=== PATIENT | female | born 1940 | race Caucasian/White ===

== ENCOUNTER 2018-05-15 14:29 | Inpatient (IN) | payer MEDICARE ==
[~2018-05-15] VITALS: Ht 162.6 cm; Wt 48.5 kg
[~2018-05-15 14:29] MED LIST: ACETAMINOPHEN500 MG PO; AGGRENOX 25 MG-21 EA PEG; AGGRENOX 25 MG-21 EA PO; AMLODIPINE BESY10 MG PO; ASPIRIN-DIPYRI1 EACH PO; BACLOFEN10 MG PO; C-10001000 MG PO; CARVEDILOL25 MG PO; CEPHALEXIN500 MG PO; CIPROFLOXACIN500 MG PO; CITRACAL SOFT1 EACH PO; CITRACAL-VIT D1 EACH PO; COREG25 MG PO; COZAAR100 MG PO; CRANBERRY200 MG PO; CRANBERRY250 MG PO; CRESTOR20 MG PO; DULCOLAX10 MG PR; ECHINACEA80 MG PO; FIBERCON1 TABLET PO; FOLGARD TABLET1 EAC1 PO; GABAPENTIN100 MG PO; GLIPIZIDE XL5 MG PO; GLUCOPHAGE850 MG PO; HYDROCHLOROTHIA25 MG PO; L-LYSINE500 M1 PO; LEVAQUIN750 MG PO; LISINOPRIL20 MG PO; LOSARTAN POTAS100 MG PO; LYSINE500 MG PO; METFORMIN HCL500 MG PO; METFORMIN HCL850 MG PO; NABUMETONE750 MG PO; NEURONTIN100 MG PO; NORCO 5-325 TA1 EACH PO; NORVASC10 MG PO; NORVASC5 MG PO; ONDANSETRON ODT4 MG SL; TOPROL XL50 MG PO; VITAMIN C WIT1000 MG PO; VITAMIN D1000 UNIT PO; VITAMIN D5000 UNIT PO; ZOFRAN4 MG PO
--- NOTE | 2018-05-15 22:09 | NUR ---
ADMITTED PT AT 2039. IS AWAKE AND WILL FOLLOW SOME DIRECTION IE TAKE A DEEP BREATH. IS DISORIENTED TO ALL BUT SELF. FAMILY ABLE TO ANSWER QUESTIONS. PT GIVEN MEDS WITH PUDDING AND ABLE TO TAKE SIP H20. ATTENDS CHANGED FOR STRONG SMELLING URINE. KEEPS HANDS CLENCHED. THIS IS REPORTED TO BE USUAL FOR PT. SKIN ON BUTTOCKS IS RED, BLANCHABLE AND PEELING IF HEALING FROM OLD EXCORIATION.
--- NOTE | 2018-05-16 01:52 | NUR ---
DR COHEN NOTIFIED OF LABE VALUES, WILL CONT NS AT CURRENT RATE AND RECHECK LABS IN AM.
--- NOTE | 2018-05-16 02:40 | NUR ---
SLEEPING SOUNDLY, RR DOWN TO 8. REPOSITIONED, ATTENDS CHANGED.
--- NOTE | 2018-05-16 04:29 | NUR ---
ASSESSMENT UNCHANGED, ATTENDS DRY.
--- NOTE | 2018-05-16 05:48 | NUR ---
INC SMALL AMT URINE. MOISTURE BARRIER CREAM APPLIED TO VALDEZ AREA WHICH IS RED.
--- NOTE | 2018-05-16 09:05 | NUR ---
ASSESSMENT COMPLETED AT THIS TIME. PT IS DROWSY, AND DISORIENTED X4 BUT CALM AND COOPERATIVE. SHE SAYS "NO" WHEN I ASK IF SHE IS IN ANY PAIN; AND SAYS "YES" WHEN ASKED IF SHE IS COMFORTABLE. PT HAS BEEN PLACED ON 2 L/MIN O2 VIA NC DUE TO PT'S DESAT INTO UPPER 80'S- AFTER O2 APPLIED IS NOW MAINTAINING IN THE 90'S. PER DR. COHEN'S VERBAL ORDER, I HAVE STOPPED HER CONTINUOUS NS AT 50 ML/HR AND SHE IS NOW SALINE LOCKED. LUNGS ARE COURSE IN THE LEFT LOBES BUT SANDRITA/DIM IN THE RIGHT LOBES. PT WAS TURNED TO THER RIGHT SIDE WITH PILLOW SUPPORT AT THIS TIME- ASSESSMENT OF HER COCCYX SHOWS THAT IT IS BRIGHT RED AND PINK BUT BLANCHABLE- VERY HIGH RISK OF BREAKDOWN SO Q2HR TURNS AND REPOSITIONING TO AND FROM LEFT/RIGHT SIDE WILL BE COMPLETED ON THIS SHIFT. I ALSO APPLIED BARRIER CREAM AND CHANGED HER BRIEF WHICH HAD LARGE AMOUNT OF INCONTINENT URINE IN IT. REST OF PT'S SKIN IS DRY, FLAKY AND FRAGILE. UNKNOWN DATE OF LAST BM AT THIS TIME BUT BOWEL TONES ARE NORMAL/ACTIVE. SB ON TELE. HEEL PROTECTORS IN PLACE. DENIES ANY NEEDS. CALL LIGHT WITHIN REACH AND FALL PRECAUTIONS IN PLACE. WILL CONTINUE TO MONITOR.
--- NOTE | 2018-05-16 09:40 | NUR ---
NEW 20 G PIV PLACED INTO RIGHT FA WITHOUT COMPLICATION AT THIS TIME. SCHEDULED ABX AND MAG ARE NOW BOTH RUNNING, ONE INTO EACH PIV (PT HAS EXISTING RUE PIV).
--- NOTE | 2018-05-16 10:15 | NUR ---
FULL BED BATH COMPLETED WITH 2 ASSIST- WELL SHAMPOO, TEETH BRUSHED, FULL LINEN CHANGE AND BRIEF CHANGED AFTER ANOTHER INCONTINENT EPISODE, LOTION APPLIED TO DRY SKIN OVER BODY AND MORE BARRIER CREAM APPLIED AFTER PERIANAL CARES. PT REPOSITIONED AT THIS TIME WITH PILLOW SUPPORT TO HER LEFT SIDE. HEEL PROTECTORS HAVE BEEN PLACED BACK ONTO PT AFTER BED BATH. PT HAS BEEN UNABLE TO EAT ANYTHING FOR BREAKFAST SHE REMAINS QUITE DROWSY, ALTHOUGH SHE WAS AWAKE ENOUGH TO SWALLOW HER PILLS IN PUDDING WITHOUT ISSUE. PT STATES THAT SHE IS COMFORTABLE AND HAS NO QUESTIONS, CONCERNS OR REQUESTS. CALL LIGHT WITHIN REACH. FALL PRECAUTIONS IN PLACE. WILL CONTINUE TO MONITOR.
--- NOTE | 2018-05-16 12:40 | NUR ---
PT'S DAUGHTER HAS ARRIVED AND IS NOW SITTING AT THE BEDSIDE. THIS RN HAS UPDATED HER ON PLAN OF CARE AND PT CONDITION. ASSESSMENT COMPLETED- NO CHANGE FROM AM ASSESSMENT- SEE CHARTING. DUE TO PT HAVING GOTTEN D5% ORDERED, HER BLOOD GLUCOSE WAS SLIGHTLY ELEVATED AT 231- SLIDING SCALE INSULIN GIVEN. PT REMAINS ON 2 L/MIN 02 VIA NC. BP'S ARE SOFT AND HR REMAINS IN HIGH 40'S/LOW 50'S- DR. COHEN CALLED AND NOTIFIED OF THIS; WELL NOTIFIED THAT DAUGHTER IS PRESENT TO COMPLETE UPDATED POLST FORM WHEN HE IS AVAILABLE. NO QUESTIONS OR CONCERNS. PT REPOSITIONED. CALL LIGHT WITHIN REACH. FALL PRECAUTIONS IN PLACE. WILL CONTINUE TO MONITOR.
--- NOTE | 2018-05-16 13:55 | NUR ---
PT REPOSITIONED TO RIGHT SIDE WITH PILLOW SUPPORT. PT CONTINUES TO MOAN AND STATES "THAT HURTS" WITH TURNS BUT WITHIN MINUTES AFTERWARDS SHE STATES SHE IS COMFORTABLE AND IN NO PAIN. WITH THIS REPOSITION, BRIEF WAS CHECKED AND HAD A SMALL AMOUNT OF INCONTINENT URINE- PT CLEANED, BARRIER CREAM REAPPLIED TO COCCYX AND NEW BRIEF IN PLACE. PT HAS FINISHED 100% OF MASHED POTATOS AND GRAVY WELL DRANK 100% OF A GLURCERNA- PT'S DAUGHTER ASSISTED HER WITH THIS FEEDING. PT SHOWS NO SIGNS OF ASPIRATION- NO COUGHING, MOUTH IS EMPTY, NO SOB. PT'S ABX HAS FINISHED INFUSING AND BOTH PIV IN RIGHT ARM ARE SALINE LOCKED. NO QUESTIONS OR CONCERNS BY PT OR DAUGHTER. CALL LIGHT WITHIN REACH. WILL CONTINUE TO MONITOR.
--- NOTE | 2018-05-16 14:20 | NUR ---
NOTIFIED DR. COHEN AT THIS TIME AFTER LAB CALLED 2 MINUTES AGO OF CRITICAL SODIUM LAB OF 111. DR. COHEN NOW AWARE- SAYS TO CONTINUE TO MONITOR PT; MAKE NO CHANGES TO PLAN AND REASSESS AFTER 1800 SODIUM LEVEL IS DRAWN.
--- NOTE | 2018-05-16 14:31 | NUR ---
CONSULT RECEIVED - UNSPECIFIED WHY. PATIENT HAS HISTORY OF DEMENTIA, TYPE 2 DM, MS, AND STROKE. SODIUM LEVEL ON ADMIT WAS 110. GLUCOSE WAS 137. LIVES WITH DAUGHTER AND SON. THEY HELP FEED HER. CURRENT DIET IS 1800 ADA WHICH IS APPROPRIATE. MAY NEED GLUCERNA FOR ORAL SUPPLEMENT FOR ADDITIONAL CALORIES. SHE HAD A GLUCERNA FOR LUNCH TODAY. NO NUTRITION INTERVENTION AT THIS TIME. WILL CONTINUE TO MONITOR.
--- NOTE | 2018-05-16 15:50 | NUR ---
PT REPOSITIONED TO LEFT SIDE WITH PILLOWS AND 2 ASSIST; INCONTINENT URINE SO PT CLEANED, BARRIER CREAM REAPPLIED TO BOTTOM AND NEW BRIEF IN PLACE. ASSESSMENT COMPLETED AT THIS TIME. PT STATES SHE IS COMFORTABLE WITH NO PAIN. PT'S DAUGHTER REMAINS AT THE BEDSIDE, NO QUESTIONS OR CONCERNS. CALL LIGHT WITHIN REACH. FALL PRECAUTIONS IN PLACE. WILL CONTINUE TO MONITOR.
--- NOTE | 2018-05-16 17:15 | NUR ---
PT REMAINS COMFORTABLE ON HER LEFT SIDE AT THIS TIME; DINNER HAS BEEN ORDERED AND PT HAS NO QUESTIONS OR CONCERNS. DAUGHTER AT BEDSIDE WITH NO QUESTIONS. CALL LIGHT WITHIN REACH. WILL CONTINUE TO MONITOR.
--- NOTE | 2018-05-16 18:45 | NUR ---
REPOSITIONED TO RIGHT SIDE AT THIS TIME. INCONT EPISODE- BARRIER CREAM REAPPLIED AND BRIEF CHANGED. DAUGHTER REMAINS AT THE BEDSIDE WITH NO QUESTIONS. POLST FORM STILL NEEDS UPDATING. PT STATES SHE IS COMFORTABLE AND HAS NO QUESTIONS OR CONCERNS. CALL LIGHT WITHIN REACH. HEEL PROTECTORS ON. WILL CONTINUE TO MONITOR.
--- NOTE | 2018-05-16 19:13 | NUR ---
NOTIFIED DR. COHEN OF CRITICAL SODIUM VALUE OF 110. HE'S AWARE AND WILL BE PLACING FLUID ORDERS.
--- NOTE | 2018-05-16 21:24 | NUR ---
PT INCONTENT OF URINE ATTENDS CHANGED AND TURNED TO LEFT SIDE.
--- NOTE | 2018-05-16 21:26 | NUR ---
BED IN LOW POSITION, CALL LIGHT WITHIN REACH SIDE RAILS X 4
--- NOTE | 2018-05-16 22:32 | NUR ---
PT APPEARS TO BE SLEEPING AT THIS TIME, RESP RATE EVEN AND UNLABORED AT THIS TIME.
--- NOTE | 2018-05-16 23:22 | NUR ---
PT ASLEEP AT THIS TIME, SPO2 100% WITH 2L VIA NC INPLACE.
--- NOTE | 2018-05-17 00:10 | NUR ---
LAB SAMPLE OBTAINED VIA IV SITE RIGHT FORARM. WASTED 3 ML AND SENT 3 MLS. PT ATTENDED CHANGED AND THEN TURNED TO HER RIGHT SIDE. CALL LIGHT WITHIN REACH, SIDE RAILS X4, AND BED IN LOW POSITION.
--- NOTE | 2018-05-17 00:52 | NUR ---
3% NS TURNED OFF, WAITING ON LAB RESULTS AT THIS TIME.
--- NOTE | 2018-05-17 01:29 | NUR ---
DR COHEN NOTIFIED OF LAB RESULTS OF THE BNP, NEW ORDERS SALINE LOCK IV SITE AND HAVE LAB IN THE AM.
--- NOTE | 2018-05-17 02:27 | NUR ---
CARE ASSUMED, REPORT RECEIVED FROM DENISSE SORIA. PT RESTING WITH EYES CLOSED, RESP EVEN UNLABORED.
--- NOTE | 2018-05-17 03:45 | NUR ---
IN TO REPOSITION AND ASSESS PT. PT AWAKENS EASILY, STATES SHE DID VOID BUT ATTENDS WERE DRY. ALLEVYN APPLIED TO COCCYX IT IS REDDENED BUT BLANCHES. PT REPOSITIONED. PAIN WITH REPOSITIONING BUT AFTER ACTIVITY PT STATES SHE IS NOT IN PAIN.
--- NOTE | 2018-05-17 06:00 | NUR ---
PT REPOSITIONED, DENIES NEEDS, ATTENDS DRY.
--- NOTE | 2018-05-17 07:24 | NUR ---
PT INC LARGE AMOUNT OF URINE, ATTENDS CHANGED AND VALDEZ CARE DONE AND PT REPOSITIONED.
--- NOTE | 2018-05-17 07:39 | NUR ---
NOTIFIED DR. COHEN OF SODIUM LEVEL OF 112. NO NEW ORDERS AT THIS TIME OTHER THAN TO MAINTAIN FLUID RESTRICTION.
--- NOTE | 2018-05-17 08:45 | NUR ---
ASSESSMENT COMPLETED AT THIS TIME. PT IS RESTING IN BED ON HER RIGHT SIDE WITH PILLOW SUPPORT. PT IS HAVING NO PAIN AND STATES SHE IS COMFORTABLE. PT IS DISORIENTED AND CONFUSED AT BASELINE BUT IS AWAKE, ALERT, PLEASANT, CALM AND COOPERATIVE. CONGESTED LUNG SOUNDS. I WEANED PT DOWN TO 1 L/MIN O2 VIA NC. PT HAS A WEAK, CONGESTED, NONPRODUCTIVE COUGH. NEEDS ENCOURAGEMENT TO COUGH AND DEEP BREATHE. BOTH PIV IN RIGHT ARM ARE WNL. PT WELL UNDER HER 1200 ML FLUID RESTRICTION. REQUIRES FULL ASSISTANCE WITH PILLS IN PUDDING WELL FEEDING- WILL ORDER PT BREAKFAST SOON. PT INCONTINENT AND REQUIRES Q2HR TURNS AND REPOSITIONING WITH PILLOW SUPPORT. ALLEYVN ON COCCYX FOR BREAKDOWN PREVENTION AND BARRIER CREAM APPLIED AT THIS TIME. LABIA EXORIATION HAS IMPROVED COMPARED TO YESTERDAY. PT HAS NO QUESTIONS OR CONCERNS. CALL LIGHT WITHIN REACH. FALL PRECAUTIONS IN PLACE. WILL CONTINUE TO MONITOR.
--- NOTE | 2018-05-17 09:50 | NUR ---
DR. COHEN AT THE BEDSIDE; PER DR. COHEN, STOP 3% SALINE AT NOON PRIOR TO LAB DRAW.
--- NOTE | 2018-05-17 10:00 | NUR ---
FULL BED BATH COMPLETED WITH LINEN CHANGE, VALDEZ CARE, ORAL CARE, REPOSITIONED TO LEFT SIDE WITH PILLOWS, INCONTINENT EPISODE- BRIEF CHANGED. PT STATES SHE IS COMFORTABLE WITH NO QUESTIONS OR CONCERNS. CALL LIGHT WITHIN REACH. FALL PRECAUTIONS IN PLACE. WILL CONTINUE TO MONITOR.
--- NOTE | 2018-05-17 12:05 | NUR ---
3% SALINE HAS BEEN STOPPED AT THIS TIME AND PT IS SALINE LOCKED- AWAITING SODIUM LAB RESULT FOR FURTHER PLAN OF CARE. DAUGHTER HAS JUST ARRIVED AT BEDSIDE. PT REPOSITIONED BACK TO HER RIGHT SIDE WITH PILLOWS. BRIEF CHECKED AND IT WAS DRY. SKIN ON BOTTOM IS MUCH LESS RED THAN IT WAS YESTERDAY- WILL CONTINUE THE TURNING SCHEDULE. ASSESSMENT COMPLETED AGAIN AT THIS TIME. LUNGS SOUNDS MORE CLEAR THAN THIS MORNING, ALTHOUGH STILL SOMEWHAT COURSE. SOME EDUCATION COMPLETED WITH DAUGHTER AT THIS TIME IN REGARDS TO LEFT/RIGHT TURNING SCHEDULE WHEN PT IS HOME. NO QUESTIONS OR CONCERNS AT THIS TIME. CALL LIGHT WITHIN REACH. PT ATE BREAKFAST LATE INTO THE MIDMORNING SO SHE STATES SHE ISN'T QUITE HUNGRY FOR LUNCH YET. CALL LIGHT WITHIN REACH. WILL CONTINUE TO MONITOR.
--- NOTE | 2018-05-17 13:49 | NUR ---
DR. OCHEN NOTIFIED AT THIS TIME OF SODIUM 116. KEEP SALINE LOCKED AND MAKE SURE PT DRINKS 150 ML OF WATER BY 1800. CONTINUE TO MONITOR AND AWAIT 1800 SODIUM LAB DRAW RESULT.
--- NOTE | 2018-05-17 14:40 | NUR ---
PT REPOSITIONED TO HER LEFT SIDE WITH PILLOW SUPPORT. BRIEF WITH LARGE INCONTINENT EPISODE; PT CLEANED, BARRIER CREAM REAPPLIED, NEW BRIEF PLACED. PT'S LUNCH HAS ARRIVED; DAUGHTER AND SON AT BEDSIDE. CALL LIGHT WITHIN REACH. WILL CONTINUE TO MONITOR.
--- NOTE | 2018-05-17 14:52 | NUR ---
DR. COHEN AT BEDSIDE AT THIS TIME TO COMPLETE POLST FORM WITH PT'S FAMILY.
--- NOTE | 2018-05-17 15:30 | NUR ---
PT HAS FINISHED LUNCH OF MASHED POTATOES AND PEAS BUT ONLY TOOK A FEW BITES, STATING SHE WASN'T HUNGRY. PT RESTING WITH DAUGHTER AT HER SIDE. NO QUESTIONS OR CONCERNS. CALL LIGHT WITHIN REACH. WILL CONTINUE TO MONITOR.
[2018-05-17] MEDS ORDERED: ZESTRIL20 MG PO (15:34)
--- NOTE | 2018-05-17 16:00 | NUR ---
ASSESSMENT COMPLETED AT THIS TIME. PT'S DAUGHTER REQUESTED SHE STAY ON HER LEFT SIDE SHE'S RESTING WITH HER EYES CLOSED. WILL REPOSITION SOON. LUNGS STILL COURSE AND WET CONGESTED STILL PRESENT- NEEDS ENCOURAGEMENT TO COUGH AND DEEP BREATHE. 1 L NC. PT REMAINS SALINE LOCKED. POLST FORM HAS BEEN COMPLETED AND PT NOW DNR. CALL LIGHT WITHIN REACH. WILL CONTINUE TO MONITOR.
--- NOTE | 2018-05-17 18:00 | NUR ---
PT REPOSITIONED TO RIGHT SIDE WITH PILLOW SUPPORT. INCONTINENT EPISODE; BRIEF CHANGED AND BARRIER CREAM REAPPLIED- REDNESS ON COCCYX, BUTTOCK AND LABIA MUCH IMPROVED OVER LAST 2 DAYS WITH KEEPING PT ON LEFT/RIGHT OPPOSED TO SUPINE. ALLEYVN REMAINS IN PLACE FOR SKIN BREAKDOWN PREVENTION. CALL LIGHT WITHIN REACH. WILL CONTINUE TO MONITOR.
--- NOTE | 2018-05-17 18:45 | NUR ---
PT REQUESTED A LATE DINNER- IT HAS JUST ARRIVED AND DAUGHTER SUAD IS ASSISTING PT WITH HER MEAL. CALL LIGHT WITHIN REACH. WILL CONTINUE TO MONITOR.
--- NOTE | 2018-05-17 19:45 | NUR ---
DR COHEN CALLED IN TO ORDER 3%NS AT 5ML/HR AFTER REVIEWING RECENT LAB RESULTS. IVF STARTED. PT AWAKE IN BED, HAD JUST FINISHED UP EATING DINNER WITH DAUGHTER, ATE ONLY A FEW BITES OF SOUP AND BANANA. SIPS OF WATER GIVEN. PT APPEARS COMFORTABLE, WAS RECENTLY TURNED BY DAY SHIFT AND IS SLEEPY, BACK TO SLEEP QUICKLY AFTER ASSESSMENT COMPLETED. ATTENDS DRY AT THIS TIME.
--- NOTE | 2018-05-17 22:20 | NUR ---
IN TO TRY TO WAKE PT FOR HS MEDS AND BLOOD SUGAR, PT AWAKENS TAKES PILLS WITH LOTS OF VERBAL STIMULI BUT WANTS TO FALL BACK TO SLEEP. REPOSITIONED AND ATTENDS DRY.
--- NOTE | 2018-05-18 01:34 | NUR ---
0125 CRITICAL LAB VALUE RECEIVED, SODIUM 116. DR COHEN NOTIFIED VIA TELEPHONE AND ORDER RECEIVED TO INCREASE 3% SODIUM IV INFUSION TO 12ML/HR.
--- NOTE | 2018-05-18 01:36 | NUR ---
DR COHEN CALLS BACK AND UPDATES ORDER TO 15ML/HR OF 3% SODIUM IV INFUSION.
--- NOTE | 2018-05-18 02:30 | NUR ---
ATTENDS DRY, PT REPOSITIONED, DENIES NEEDS AND BACK TO SLEEP.
--- NOTE | 2018-05-18 05:00 | NUR ---
REPOSITIONED, ASSESSMENT DONE AND PT BACK TO SLEEP.
--- NOTE | 2018-05-18 07:51 | NUR ---
CALL TO DR COHEN TO UPDATE RE [facility], ORDER TO TURN 3%NS INFUSION TO 10ML/HR.
--- NOTE | 2018-05-18 08:17 | NUR ---
IV SITES INTACT, NO REDNESS OR SWELLING NOTED, FLUIDS AND FLUSHES INFUSE EASILY. PT REMAINS CONFUSED AND VERY DROWSY. VITALS WNL.
--- NOTE | 2018-05-18 12:44 | NUR ---
PT REPOSITIONED IN BED WITH HELP OF DAUGHTER. PT NOT ABLE TO COMMUNICATE AT THIS TIME. PT WOULD SWALLOW ONE SIP OF GLUCERNA, REFUSED MORE. PT IS DROWSY. DISCUSSED CURRENT CARE PLAN WITH DAUGHTER. DAUGHTER IS TEARFUL ON OCCASION. PT ALSO NOT ABLE TO FOLLOW DIRECTIONS.
--- NOTE | 2018-05-18 13:21 | NUR ---
FAMILY IN WITH PT AND ESTELLA MARTINEZ. THEY APPEAR TO BE IN DISCUSSION, WILL NOT DISTURB. I WILL CHECK BACK LATER
--- NOTE | 2018-05-18 13:46 | NUR ---
CALLED MD COHEN TO UPDATE REGUARDING PT LABS. PER MD START 3% NORMAL SALINE AT 10MLS/HR. UPDATED THAT PATIENT HAS BEEN UNABLE TO SWALLOW POTASSIUM SUPPLEMENTS. PER MD NO IV REPLACEMENT AT THIS TIME. CONTINUE TO ENCOURAGE PO REPLACEMENT ORDERED. WILL UPDATE MICHELLE SORIA OF RESULTS AND ORDERES.
[2018-05-18] MEDS ORDERED: CIPRO500 MG PO (13:52)
--- NOTE | 2018-05-18 13:52 | NUR ---
MED REC COMPLETE
--- NOTE | 2018-05-18 14:00 | NUR ---
in to remove pts dentures and do oral care. pts family reports that pt has been complaining of a sore throat. sore noted to the roof of mouth, small red, round. primary nurse notified.
--- NOTE | 2018-05-18 14:15 | NUR ---
ORAL CARES DONE. MOIST SWABS USED TO CLEAN GUMS AND TOUNG. SMALL FLEXIBLE SUCTION ORAL SUCTION CATH USED. PT DAMASO WELL.
--- NOTE | 2018-05-18 14:54 | NUR ---
PT ATTENDS CHANGED SHE IS INCONTINENT OF LARGE AMOUNT OF URINE. PT REPOSITIONED FOR COMFORT TO LEFT SIDE WITH PILLOW FOR SUPPORT. VALDEZ AREA REMAINS RED BUT BLANCHABLE. VALDEZ CARE DONE.
--- NOTE | 2018-05-18 15:29 | NUR ---
PT ABLE TO SWALLOW ONE PILL WITH DIFFICULTY. PT REFUSING TO DRINK FLUIDS AT THIS TIME. PT GIVEN A SUPPOSITORY FOR CONSTIPATION.
--- NOTE | 2018-05-18 16:32 | NUR ---
PT REPOSITIONED IN BED TO RT SIDE WITH PILLOWS FOR SUPPORT. PT ATTENDS STILL DRY AT THIS TIME. IV SITES INTACT, NO REDNESS OR SWELLING NOTED, FLUIDS AND FLUSHES INFUSE EASILY. PT NOT WAKING AND INTERACTING APPROPIATLY.
--- NOTE | 2018-05-18 17:22 | NUR ---
3% SODIUM CHLORIDE DRIP OFF AT THIS TIME PER .
--- NOTE | 2018-05-18 18:37 | NUR ---
PT STRAIGHT CATHED FOR URINE SAMPLE. VALDEZ CARE DONE. ATTENDS CHANGED, PT REPOSITIONED WITH SUPPORT OF PILLOWS, WARM BLANKET PROVIDED. URINE SAMPLE SENT TO LAB.
--- NOTE | 2018-05-18 20:00 | NUR ---
REPORT RECEIVED, PT RESTING IN BED, EYES CLOSED, EASY TO AROUSE BUT REMAINS DROWSY, PT'S FAMILY AT BEDSIDE. NO REQUESTS AT THIS TIME. DISCUSSED WITH DR. COHEN REGARDING PT'S SODIUM LEVELS AND MEDICATION, DR. COHEN ENTERED SEVERAL NEW ORDERS, SEE EMAR. QUESTIONS ANSWERED, MD AWARE OF PT'S CURRENT CONDITION INCLUDING DROWSINESS, DECREASED PO INTAKE, INABILITY FOR PT TO TAKE PO MEDS, PT WAS ONLY ABLE TO TAKE ON PILL BEFORE BECOMING TIRED AND UNABLE TO FOLLOW DIRECTIONS.
--- NOTE | 2018-05-18 21:00 | NUR ---
IV FLUIDS INFUSING PER EMAR WNL, PT'S FAMILY LEFT THE UNIT , WISHES FOR HER TO BE CALLED IF ANY CHANGES OCCUR. SHIFT ASSESSMENT COMPLETE. PT RESTING IN BED, EYES CLOSED. NO REQUESTS AT THIS TIME. REPOSITIONED IN BED FOR COMFORT. WILL CONTINUE TO MONITOR, VSS.
--- NOTE | 2018-05-18 22:13 | NUR ---
PT RESTING IN BED, EYES CLOSED, BREATHS EVEN, UNLABORED, NO REQUESTS AT THIS TIME, CALL LIGHT WITHIN REACH. ON RA, VSS, FALL PRECAUTIONS IN PLACE. PT REPOSITIONED FOR COMFORT. IV FLUIDS INFUSING PER EMAR WNL.
--- NOTE | 2018-05-19 | NUR ---
ASSESSMENT COMPLETE, PT RESTING IN BED, RESPONSIVE TO VERBAL STIMULI, ABLE TO COMMUNICATE SHORT PHRASES, PT ON RA, NO C/O SOB/CP, NO C/O PAIN, PT INCONTINENT OF LARGE URINE VOID AND SMALL BM, ATTENDS CHANGED, NEW BEDDING APPLIED, NEW ALLEVYN APPLIED TO PT'S BACK SIDE, MODERATE REDNESS NOTED, SKIN BLANCHABLE, ONE SMALL OPEN SCABBED AREA NOTED ON RIGHT GLUTEUS, APPEARS OLD, NO SIGNS OF DRAINAGE, PT ANXIOUS RELATED TO TURNING IN BED, PT TURNED FOR COMFORT, PILLOW PLACED ON LEFT SIDE FOR SUPPORT, PT AFEBRILE, VSS, IV FLUIDS INFUSING PER EMAR WNL. NO REQUESTS AT THIS TIME, CALL LIGHT WITHIN REACH, FALL PRECAUTIONS IN PLACE.
--- NOTE | 2018-05-19 01:00 | NUR ---
PT RESTING IN BED, EYES CLOSED, BREATHS EVEN, UNLABORED, ON RA, NO C/O SOB/CP, NO C/O PAIN. PT'S IV FLUIDS INFUSING PER EMAR WNL. NO REQUESTS AT THIS TIME, CALL LIGHT WITHIN REACH, FALL PRECAUTIONS IN PLACE.
--- NOTE | 2018-05-19 02:52 | NUR ---
PT RESTING IN BED, EYES CLOSED, BREATHS EVEN, UNLABORED, ON RA, NO REQUESTS AT THIS TIME, VSS, CALL LIGHT WITHIN REACH. FALL PRECAUTIONS IN PLACE.
--- NOTE | 2018-05-19 03:22 | NUR ---
DR. COHEN CALLED, NOTIFIED OF PT'S RECENT LAB VALUES, SODIUM LEVEL CAME BACK AT 125, DR COHEN AWARE, DISCUSSED PT'S INTAKE AND OUTPUT WELL, NEW ORDER TO HOLD IV FLUIDS UNTIL AFTER FOLLOWING LAB RESULTS.
--- NOTE | 2018-05-19 04:00 | NUR ---
PT RESTING IN BED, AOX4, APPROPRIATE, PT ON 3LNC, TOLERATING WELL, O2 SAT 97%, NO C/O SOB/CP, DALY CATH DRAINING WNL, URINE OUTPUT QS, VSS, IV FLUIDS INFUSING PER EMAR WNL. ASSESSMENT COMPLETE. NO REQUESTS AT THIS TIME, CALL LIGHT WITHIN REACH. FALL PRECAUTIONS IN PLACE.
--- NOTE | 2018-05-19 04:19 | NUR ---
PT RESTING IN BED, BREATHS EVEN, UNLABORED, ON RA, NO C/O SOB/CP, NO REQUESTS AT THIS TIME, ASSESSMENT DONE, PT ALERT, REMAINS DROWSY, BUT MORE RESPONSIVE THAN PREVIOUS, PT REMAINS CONFUSED, DISORIENTED, BUT WILL RESPOND TO VERBAL STIMULI AND COMMUNICATE SHORT RESPONSES. PT INCONTINENT OF URINE, ATTENDS CHANGED, PT TURNED FOR COMFOT, VSS, CALL LIGHT WITHIN REACH, FALL PRECAUTIONS IN PLACE. IV SL.
--- NOTE | 2018-05-19 06:07 | NUR ---
IN ROOM TO ADMIN SCHED ABX, PT RESTING IN BED, EYES CLOSED, BREATHS EVEN, UNLABORED, ON RA, IV SL NOW, PT RESPONDING TO VERBAL STIMULI, REMAINS DROWSY, DISORIENTED, PT REPOSITIONED IN BED FOR COMFORT, ON RA, VSS, NO REQUESTS AT THIS TIME, CALL LIGHT WITHIN REACH.
--- NOTE | 2018-05-19 08:20 | NUR ---
IV SITES INTACT, NO REDNESS OR SWELLING NOTED, BOTH SITES FLUSH EASILY.
--- NOTE | 2018-05-19 08:56 | NUR ---
PT LEFT WITH RN AND IMAGING STAFF TO HAVE CT.
--- NOTE | 2018-05-19 09:10 | NUR ---
PT BACK TO ROOM 130 FROM IMAGING, PT DAMASO WELL.
--- NOTE | 2018-05-19 09:25 | NUR ---
D5 1/2 NS AT 45 ML/HR STARTED PER DR.REDDY VALENTINE.
--- NOTE | 2018-05-19 12:17 | NUR ---
CARE CONFERENCE DR COHEN DISCUSSED PLAN OF CARE WITH FAMILY TO INCLUDE THAT DR KESSLER WILL BE HERE THIS EVENING TO SEE PT ABOUT THE STONE THAT IS BLOCKING. FAMILY IS FEELING RELIEVED THAT AT THIS POINT IN TIME SHE WILL NOT HAVE TO BE TRANSFERRED TO ANOTHER FACILITY PRESENT WERE: SON SILVIA, DAUGHTER SUAD, DR COHEN, MYSELF CASE MANAGEMENT, AND JOJO SORIA.
--- NOTE | 2018-05-19 17:50 | NUR ---
3% SODIUM CHLORIDE TURNED OFF AT THIS TIME PER ORDER. WAITING PENDING LAB FOR MOST RECENT SODIUM LEVEL.
--- NOTE | 2018-05-19 18:27 | NUR ---
DAUGHTER IS AT THE BEDSIDE. PT VITALS REMAIN STABLE. KAILEE ORTIZ HAS DISCUSSED WITH FAMILY IN DEPTH RISKS INVOLVED WITH ANASTHESIA FOR THIS PT, ALL QUESTIONS ANSWERED. FAMILY DOES NOT WISH TO REVOKE DNR/DNI FOR THE PROCEDURE.
--- NOTE | 2018-05-19 18:31 | NUR ---
PT HAD A DALY URINARY CATH PLACED THIS MORNING, GREATER THAN QS URINE PRODUCTION ALL DAY. BEDBATH GIVEN, ORAL CARE DONE X4 DURING THIS SHIFT, PT REPOSITIONED Q2 HOURS WITH SUPPORT OF PILLOWS. PT WENT TO CT THIS AM FOR ABD CT WITH IV CONTRAST. PT LOC HAS REMAINED LOW. PT FAMILY HAS BEEN AT THE BEDSIDE MOST OF THE DAY. AND REDD ORTIZ CRNA HAVE DISCUSSED IN DETAIL WITH FAMILY SURGERY FOR THIS PT TODAY. IS YET TO SEE PT, AWAITING HER FOR SURGICAL CONSULT. PT HAS AN ADDITIONAL IV STARTED THIS AFTERNOON. VITALS HAVE BEEN WNL ALL SHIFT.
--- NOTE | 2018-05-19 18:50 | NUR ---
CALLED REDD ORTIZ CRNA TO NOTIFY OF POSITIVE TOROPONIN LEVEL OF 0.085. NO FURTHER ORDERS AT THIS TIME.
--- NOTE | 2018-05-19 19:54 | NUR ---
PT RESTING IN BED, AWAKE, RESPONSIVE, COMMUNICATING SHORT PHRASES WITH STAFF, PT REPOSITIONED IN BED FOR COMOFORT, IV FLUIDS INFUSING PER EMAR WNL, PT'S VSS, NO REQUESTS AT THIS TIME, CALL LIGHT WITHIN REACH, FALL PRECAUTIONS IN PLACE.
--- NOTE | 2018-05-19 20:33 | NUR ---
DR. KESSLER IN ROOM DISCUSSING RISK AND BENEFITS OF SURGERY, PT RESTING IN BED, FAMILY AT BEDSIDE, NO REQUESTS AT THIS TIME, CALL LIGHT WITHIN REACH, IV FLUIDS INFUSING PER EMAR WNL.
--- NOTE | 2018-05-19 20:45 | NUR ---
DR. BORDEN CALLED, DISCUSSED DR. KESSLER SPEAKING WITH FAMILY, ALSO DISCUSSED PT'S RECENT SODIUM LEVEL OF 124, DR. BORDEN ORDERED FOR 3% NS INFUSION TO BE RESTARTED AT 10ML/HR UNTIL PT'S NEXT LAB DRAW IN THE MORNING, UNLESS THE PT IS TO BE GOING TO SURGERY. DR. KESSLER REMAINS IN ROOM WITH FAMILY DISCUSSING SURGERY OPTIONS, PT RESTING IN BED, IV FLUIDS INFUSING PER EMAR WNL, NO REQUESTS AT THIS TIME, VSS, CALL LIGHT WITHIN REACH. FAMILY/MD AT BEDSIDE.
--- NOTE | 2018-05-19 21:45 | NUR ---
DR. KESSLER AND DR. BORDEN TO UNIT, BOTH PHYSICIANS DISCUSSED POC REGARDING PT AND SURGERY, DR. KESSLER AND FAMILY DECIDED TO NOT HAVE SURGERY TONIGHT, DR. KESSLER SPENT AN HOUR IN THE ROOM SPEAKING WITH THE FAMILY REGARDING ALL OPTIONS INCLUDING SURGERY WELL TRANSITIONING TO END OF LIFE PALLIATIVE CARE. DISCUSSED WITH DR. BORDEN THE PT'S INABILITY TO TOLERATE PO INTAKE WELL THE PT'S BP. NEW ORDER FOR IV BLOOD PRESSURE MED SEE EMAR. PT RESTING IN BED, FAMILY AT BEDSIDE, IV FLUIDS INFUSING PER EMAR WNL, DALY CATH DRAINING WNL. PT ON 1LNC, O2 SAT > 95%, NO REQUESTS AT THIS TIME, CALL LIGHT WITHIN REACH.
--- NOTE | 2018-05-19 22:00 | NUR ---
PT RESTING IN BED, PT REPOSITIONED IN BED, EVENING MEDS ADMINISTERED, SHIFT ASSESSMENT COMPLETE, PT MOUTH SUCTIONED FOR COMFORT, WHITE THICK SPUTUM SUCTIONED FROM PT'S MOUTH, ORAL CARE PROVIDED FOR COMFORT, PT REPOSITIONED FOR COMFORT, NEW ATTENDS PLACED, SMALL SMEAR OF STOOL NOTED, BARRIER CREAM APPLIED TO PT'S BACKSIDE, BACKSIDE APPEARS RED, BLANCHES, ALLEVYN NOTED ON COCCYX, REMAINS INTACT, NO PAIN OR DISCOMFORT NOTED RELATED TO PT'S BACKSIDE. PT WAS GIVEN PRN ACETAMINOPHIN SUPP. PER PT'S FAMILY REQUEST RELATED TO SYMPTOMS OF DISCOMFORT, PT NOTED TO OCASSIONALLY GRIMACE, MOAN IN PAIN WHEN MOVING, PT'S FAMILY NOTED THE PT "CLENCHES HER FISTS WHEN IN PAIN" PT TOLERATED SUPPOSITORY WELL. PRN BP MED GIVEN PER EMAR WELL. ON 1LNC, NO C/O SOB/CP, O2 SAT >95%, IV FLUIDS INFUSING PER EMAR, 3% NS INFUSING AT 10 ML/HR PER ORDER, FAMILY REMAINS AT BEDSIDE, FALL PRECAUTIONS IN PLACE, CALL LIGHT WITHIN REACH.
--- NOTE | 2018-05-19 23:43 | NUR ---
PT RESTING IN BED, EYES CLOSED, BREATHS EVEN, UNLABORED, NO REQUESTS AT THIS TIME. VSS, ON 1LNC, O2 SAT 94% RR 14, FAMILY REMAINS AT BEDSIDE, IV FLUIDS INFUSING PER EMAR WNL, CALL LIGHT WITHIN REACH, FALL PRECAUTIONS IN PLACE.
--- NOTE | 2018-05-20 00:34 | NUR ---
PT RESTING IN BED, EYES CLOSED, BREATHS EVEN, UNLABORED, ON 1LNC, NO C/O SOB/CP, O2 SAT 97%, RR 13, IV FLUIDS INFUSING PER EMAR WNL, DALY CATH DRAINING WNL, FAMILY REMAINS AT BEDSIDE, CALL LIGHT WITHIN REACH, FALL PRECAUTIONS IN PLACE.
--- NOTE | 2018-05-20 01:30 | NUR ---
PT RESTING IN BED, EYES CLOSED, BREATHS EVEN, UNLABORED, NO REQUESTS AT THIS TIME, NO SIGNS OF DISCOMFORT OR AGITATION. PT ON 1LNC, O2 SAT 98%, IV FLUIDS INFUSING PER EMAR WNL, DALY CATH DRAINING WNL. CALL LIGHT WITHIN REACH. FAMILY REMAINS AT BEDSIDE, FALL PRECAUTIONS IN PLACE.
--- NOTE | 2018-05-20 02:40 | NUR ---
PT TURNED FOR COMFORT, PT AWAKES WITH TURNING, QUICKLY ABLE TO CONSOLE, PT QUICK TO FALL BACK ASLEEP, PT ON 1LNC, NO C/O SOB/CP, O2 SAT 100%, RR 14, IV FLUIDS INFUSING PER EMAR WNL, NO REQUESTS AT THIS TIME, FAMILY REMAINS AT BEDSIDE. DALY CATH DRAINING WNL. URINE OUTPUT QS. CALL LIGHT WITHIN REACH, FALL PRECAUTIONS IN PLACE.
--- NOTE | 2018-05-20 03:21 | NUR ---
PT RESTING IN BED, EYES CLOSED, BREATHS EVEN, ON 1LNC, O2 SAT 98% RR 14, VSS, AFEBRILE, NO REQUESTS AT THIS TIME, NO SIGNS OF DISCOMFORT OR AGITATION, IV FLUIDS INFUSING PER EMAR, 3% NS INFUSING AT 10 ML/HR PER ORDER PER DR. BORDEN, DALY CATH DRAINING WNL, FAMILY REMAINS AT BEDSIDE, CALL LIGHT WITHIN REACH, FALL PRECAUTIONS IN PLACE.
--- NOTE | 2018-05-20 05:29 | NUR ---
ASSESSMENT COMPLETE, PT RESTING IN BED, EYES CLOSED, BREATHS EVEN, UNLABORED, REPOSITIONED IN BED, PT AWOKE, NO SIGNS OF DISCOMFORT OR RESTLESNESS, NO C/O SOB/CP, ON 1LNC, O2 SAT >95%, PT GIVEN PRN HYDRALAZINE FOR SYSTOLIC BP > 150 PER ORDER, IV FLUIDS INFUSING PER EMAR, 3% SALINE INFUSING AT 10 MLS/HR, DALY CATH DRAINING WNL, URINE OUTPUT QS, NO REQUESTS AT THIS TIME, FAMILY AT BEDSIDE, CALL LIGHT WITHIN REACH. FALL PRECAUTIONS IN PLACE.
--- NOTE | 2018-05-20 06:36 | NUR ---
SCHEDULED ABX GIVEN, PT RESTING IN BED, AWAKE, DROWSY, PT RESPONSIVE TO VERBAL STIMULI, ABLE TO COMMUNICATE SHORT PHRASES, ORAL CARE PROVIDED, DALY CATH DRAINING WNL, URINE OUTPUT QS, IV FLUIDS INFUSING PER EMAR, 3% SALINE INFUSING AT 10 ML/HR PER EMAR, FAMILY REMAINS AT BEDSIDE, ON 1LNC, O2 SAT > 95%, NO C/O SOB/CP, NO SIGNS OF DISCOMFORT OR RESTLESNESS, FALL PRECAUTIONS IN PLACE, NO REQUESTS AT THIS TIME, CALL LIGHT WITHIN REACH.
--- NOTE | 2018-05-20 07:00 | EKG ---
[facility] [address] [place] [address] Signed Sinus rhythm with 1st degree AV block Right bundle branch block Abnormal ECG When compared with ECG of 07-APR-2018 17:27, VT interval has increased Right bundle branch block is now present Confirmed by SUE BORDEN MD ([id number]) on 05/20/2018 7:00:08 AM Electronically Signed By: SUE BORDEN MD 05/20/18 0700 PATIENT NAME: GREGORY MICHAEL Electrocardiogram DATE OF : 40 PHYSICIAN: SUE BORDEN MD REPORT #: [id number] REPORT IS CONFIDENTIAL AND NOT TO BE RELEASED WITHOUT AUTHORIZATION
--- NOTE | 2018-05-20 08:25 | NUR ---
, THIS RN, AND DAUGHTER SUAD DISCUSSED PLAN OF CARE FOR THE DAY WELL PAIN/DISCOMFORT MANAGEMENT. FENTANAYL DURAGESIC PATCH DISCUSSED. ONE OTHER DAUGHTER DUE TO ARRIVE LATER TODAY, FAMILY PLANS TO WAIT TO MAKE THE DISCISION TO GO TO COMFORT CARE UNTIL ALL AT THE BEDSIDE. ALL QUESTIONS ANSWERED.
--- NOTE | 2018-05-20 09:50 | NUR ---
COMPLETE BEDBATH DONE, PT HAIR SHAMPOOED, SKIN CARE COMPLETED, DALY CATH CARES DONE, VALDEZ CARE DONE OINTMENT APPLIED TO RED SKIN. ALLEVEN APPLIED TO COCCIX ABOVE CURRENT ALLEVEN BANDAGE FOR JENN PROMINANCE. 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 ALL LINENS CHANGED. SKIN CARE TO HANDS AND FEET PROVIDED, NEW SOCKS AND HEAL PROTECTORS IN PLACE.
--- NOTE | 2018-05-20 10:35 | NUR ---
1L O2 VIA NASAL CANULA APPLIED DUE TO DESAT TO 84% ON ROOM AIR.
--- NOTE | 2018-05-20 11:55 | NUR ---
PT REPOSITIONED FOR COMFORT, PILLOWS IN PLACE FOR SUPPORT. DAUGHTER IS AT THE BEDSIDE.
--- NOTE | 2018-05-20 14:04 | NUR ---
PT REPOSITIONED TO RT SIDE FROM LEFT SIDE, PILLOWS FOR SUPPORT. IV SITE IN RT FOREARM DC'D, TIP OF CATH INTACT.
--- NOTE | 2018-05-20 16:27 | NUR ---
TURNED PT TO LFET SIDE, SUPPORTED WITH PILLOWS. REPLACED ROLLED WASHCLOTHS IN BOTH HANDS. SWABED PT MOUTH OUT WITH GLYCERINE SWABS, PT DAMASO WELL. FAMILY AT THE BEDSIDE.
--- NOTE | 2018-05-20 17:32 | NUR ---
repositioned pt for comfort to the far left side. pt given tylenol supository for low fever of 99.5. pt begining to have rattles with breathing, o2 sat is down to 88% on 1 L NC, o2 turned up to 2 L.
--- NOTE | 2018-05-20 17:57 | NUR ---
oxygen taken off pt at this time per discussion with both daughters at bedside. will place back on pt for comfort if needed.
--- NOTE | 2018-05-20 19:45 | NUR ---
SHIFT REPORT RECEIVED FROM TERRI MARTINEZ FROM CCU. PT AWAKE, BASELINE HX OF DEMENTIA, RR EVEN AND UNLABORED. FAMILY IN ROOM WITH PT. DALY CATHETER IN PLACE, DRAINING CLEAR YELLOW URINE. NO FURTHER NEEDS AT THIS TIME.
--- NOTE | 2018-05-20 19:55 | NUR ---
PT REPOSITIONED IN BED, PILLOWS PLACED UNDER PT'S RIGHT LATERAL AND ARM FOR COMFORT. CALL LIGHT IN REACH, FAMILY IN ROOM. NO FURTHER NEEDS AT THIS TIME.
--- NOTE | 2018-05-20 21:01 | NUR ---
TEMP TAKEN PER HER RN AYANNA. INFORMED HER 100.1
--- NOTE | 2018-05-20 21:10 | NUR ---
FAMILY IN ROOM WITH PT, CONCERNS PT FEELS WARM. TEMP OBTAINED FROM August, RESULT OF 100.1. BLANKETS REMOVED, ROOM TEMPERATURE TURNED DOWN. PT RECEIVED TYLENOL SUPPOSITORY IN CCU, UNABLE TO ADMINSITER ADDITIONAL MEDICATION AT THIS TIME. WILL CONTINUE TO MONITOR.
--- NOTE | 2018-05-20 21:45 | NUR ---
PT REPOSITIONED FOR COMFORT AND PREVENTION IN SKIN BREAKDOWN. PT MOANED WHILE REPOSITIONED, BUT NODDED WHEN ASKED IF COMFORTABLE. FAMILY IN ROOM, CALL LIGHT IN REACH.
--- NOTE | 2018-05-20 22:15 | NUR ---
ASSESSMENT COMPLETE, VSS. TEMPERATURE 99.6, WILL CONTINUE TO MONITOR. IV 5%DEXTROSE W/ 1/2 NS INFUSING PER MD ORDERS, IV SITE WNL. BS COLLECTED. RECEIVED IN REPORT THAT SCHEDULED BS CHECKS WERE NOT BEING COMPLETED OF A.M. OF 05/20/18, BUT MICHELLE STATED, "YOU CAN DO THEM IF YOU WANT, WE JUST HAVEN'T BEEN DOING THEM SINCE THIS MORNING". 2100 SCHEDULED BS CHECK RESULT OF 144, 1 UNIT INSULIN SS ADMINISTERED PER MD SS INSULIN ORDERS. ALLEVYN IN PLACE ON COCCYX, EDGES INTACT. AREA SURROUNDING ALLEVYN BLANCHABLE. FAMILY VERBALIZED INTEREST IN TALKING TO DR BORDEN AND STATED, " IF WE COULD SEE THE DOCTOR TONIGHT SO WE CAN TALK AND KNOW WHAT TO EXPECT MOM COULD BE AT END OF LIFE". DR BORDEN MADE AWARE OF FAMILY REQUEST. DR BORDEN REPLIED, "WE BEEN BEEN TALKING THROUGHOUT THE DAY, I WILL SEE THEM IN THE MORNING". FAMILY VERBALIED UNDERSTANDING ARE ARE RECEPTIVE TO PLAN OF CARE.
--- NOTE | 2018-05-20 22:18 | NUR ---
VITALS AND I&OS DONE AND CHARTED. BLOOD SUGAR DONE WELL. BEDSIDE TABLE AND CALL LIGHT IN REACH. DAUGHTERS IN ROOM. INFORMED HER RN AYANNA OF TEMP.
--- NOTE | 2018-05-20 23:13 | NUR ---
DISCUSSED WHETHER OR NOT TO GIVE INSULIN WITH FAMILY. THEY AGREED IT WOULD BE OKAY TO CONTINUE WITH CURRENT ORDERS OF CHECKING BG AND ADMINISTERING INSULIN UNTIL THEY MAKE FURTHER DECISIONS AFTER TALKING WITH DR BORDEN IN THE MORNING ABOUT HOW TO KEEP HER COMFORTABLE. 1 UNIT OF S/S INSULIN ADMINISTERED FOR BG OF 144. PT AND FAMILY DENY FURTHER NEEDS.
--- NOTE | 2018-05-21 00:46 | NUR ---
PT REPOSITIONED WITH HELP FROM MICHAEL SORIA. PILLOW PLACED UNDER PT'S LEFT LATERAL AND RIGHT ARM FOR COMFORT. IV FLUIDS INFUSING PER MD ORDERS, IV SITE WNL. CALL LIGHT IN REACH, FAMILY IN ROOM. DALY CATHETER DRAINING CLEAR YELLOW URINE.
--- NOTE | 2018-05-21 01:51 | NUR ---
new bag of fluids hung per md orders, iv site wnl. family in room. call light in reach.
--- NOTE | 2018-05-21 03:26 | NUR ---
WITH THE HELP OF ESTELLA URENA WE REPOSITIONED PT IN BED. PUT BEARIER CREAM ON HER VAGINAL AREA. I TOOK HER TEMP , CHARTED AND INFORMED RN. BEDSIDE TABLE AND CALL LIGHT IN REACH.
--- NOTE | 2018-05-21 03:30 | NUR ---
ASSESSMENT COMPLETE. PT HAS HX DEMENTIA, UNABLE TO ASSESS ORIENTATION AT THIS TIME. WHEN ASKED IF PT WAS COMFORTABLE, PT NODDED HEAD AND STATED, "YES". IV FLUIDS INFUSING PER MD ORDERS, IV SITE WNL. REDDNESSS NOTED AT VALDEZ AREA, VALDEZ CARE AND BARRIER CREAM APPLIED. DALY DRAINING YELLOW CLEAR URINE. DRY ATTENDS IN PLACE. TEMP 99.3, WILL CONTINUE TO MONITOR. FAMILY IN ROOM.
--- NOTE | 2018-05-21 04:44 | NUR ---
PT ARRIVED FROM THE CCU AT BEGINNING OF SHIFT CHANGE. PT HAS HX OF BASELINE DEMENTIA, ORIENTATION IS INTERMITTENT. PT RECEIVING LR W/ 1/2NS AT 45 MLS/HR, IV SITE WNL. DALY CATHETER IN PLACE, DRAINING CLEAR YELLOW URINE. REDDENED AREA IN VALDEZ AND COCCYX. ALLEVYN IN PLACE. FAMILY IN ROOM, PLAN IS FOR PT TO BE DISCHARGED TO HOSPICE TUESDAY/TUESDAY.
--- NOTE | 2018-05-21 06:24 | NUR ---
MEDICATION DUE. ABX INFUSION STARTED (SEE MAR). FLUSH COMPLETED. MAINTENANCE FLUIDS RUNNING AT 45 MLS/HR. pt RESTING IN BED. FAMILY AT BED SIDE.
--- NOTE | 2018-05-21 06:56 | NUR ---
VITALS AND I&OS DONE AND CHARTED. INFORMED ESTELLA URENA OF HIGH B\P AND TEMP. BEDSIDE TABLE AND CALL LIGHT IN REACH. COFFEE GIVEN TO HER DAUGHTERS IN HER ROOM.
--- NOTE | 2018-05-21 07:05 | NUR ---
bp result of 175/92, hr 96. prn hydralazine adminsitered. call light in reach. family in room.
--- NOTE | 2018-05-21 09:10 | NUR ---
PT LYING ON BACK FLOATED ON PILLOWS. EYES OPEN BUT PT NOT RESPONDING TO VERBAL CUES AT THIS TIME. BREATHING APPEARS UNLABORED. NO FACIAL GRIMACE, GUARDING, OR OTHER SIGNS OF PAIN NOTED. PT DAUGHTERS AGREE THAT PT APPEARS COMFORTABLE. DALY PATENT. BOTH IV SITES PATENT. PILLOW BETWEEN LEGS. FAMILY REPORTS PT REFUSING FOOD OR WATER. ORAL CARE PROVIDED. QUESTIONS ANSWERED AND CARE CART IN ROOM FOR FAMILY. CALL LIGHT WITHIN REACH.
--- NOTE | 2018-05-21 10:15 | NUR ---
PT REPOSITIONED SLIGHTLY TO LEFT SIDE. PT MORE ALERT AT THIS TIME. RESPONDING APPROPRIATELY VERBALLY. PT DENIES PAIN OR OTHER CONCERNS AT THIS TIME. CALL LIGHT WITHIN REACH. DAUGHTERS AT BEDSIDE.
--- NOTE | 2018-05-21 11:05 | NUR ---
PATIENT RESTING IN BED. FAMILY IN ROOM. VITAL SIGNS AND I&O DONE. CALL LIGHT WITHIN REACH. NO OTHER NEEDS AT THIS TIME
--- NOTE | 2018-05-21 11:59 | NUR ---
PRINTED OFF EXTENSIVE DEMENTIA EDUCATION AND PROVIDED TO FAMILY. ANSWERED QUESTIONS. PT RESTING IN BED COMFORTABLY AT THIS TIME. CALL LIGHT WITHIN REACH.
--- NOTE | 2018-05-21 13:35 | NUR ---
PT REPOSITIONED IN BED, PAINFUL WITH MOVEMENT. MULTIPLE FAMILY MEMBERS PRESENT IN ROOM AT THIS TIME. PT DENIES NEEDS OR CONCERNS STATES "I'M OK". CALL LIGHT WITHIN REACH.
--- NOTE | 2018-05-21 13:35 | NUR ---
repositioned patient and did blood sugar 139, nurse is aware
--- NOTE | 2018-05-21 14:25 | NUR ---
PATIENT IN BED. FAMILY IN ROOM. VITAL SIGNS AND I&O DONE. CALL LIGHT WITHIN REACH. NO OTHER NEEDS AT THIS TIME
--- NOTE | 2018-05-21 14:38 | NUR ---
PT FAMILY CONCERNED THAT PT "IS VERY TIRED AND NEEDS TO GET SOME SLEEP BUT SHE CANT FOR SOME REASON." ASKED FOR RECOMMENDATIONS ON WHAT TO DO. DR. BORDEN AWARE. GAVE FAMILY SLEEP MASK TO TRY ON PT IF THEY WISH, SET UP WHITE NOISE MACHINE, AND PLACE AROMATAB NEAR PT, SHADES DRAWN. FAMILY THANKFUL. CALL LIGHT WITHIN REACH.
--- NOTE | 2018-05-21 15:32 | NUR ---
REPORT GIVEN TO GENA SORIA
--- NOTE | 2018-05-21 17:27 | NUR ---
PT REPOSITIONED PER HER REQUEST. PT REPORTS SHE IS CONFORTABLE AT THIS TIME. PT ON RA, RESP EVEN AND NON LABORED. FAMILY IN ROOM. PERSONAL SUPPLIES AND CALL LIGHT WITHIN REACH.
--- NOTE | 2018-05-21 19:22 | NUR ---
RECIEVED CHANGE OF SHIFT REPORT FROM NEREYDA SORIA AND GENA RN. PATIENT RESTING IN BED WITH EYES OPEN, RESPIRATORY RATE IS EVEN AND UNLABORED. FAMILY AT BEDSIDE. WHITE BOARD UPDATED. NO MORE NEEDS AT THIS TIME.
--- NOTE | 2018-05-21 20:38 | NUR ---
VITALS DONE AND CHARTED. WITH THE HELP OF RN KOURTNEY WE REPOSITIONED PT IN BED, DID DALY CARE. DUE TO HER HIGH B\\P PATIENTS FAMILY WOULD LIKE TO" RECHECK HER B\\P LATER". FAMILY NEEDS NOTHING ELSE AT THIS TIME.
--- NOTE | 2018-05-21 20:42 | NUR ---
ASSESSMENT COMPLETE. BLOOD PRESSURE ASSESSED TO BE HIGH, PROVIDED EDUCATION TO PATIENT'S FAMILY ABOUT AVALIABLE PRN BLOOD PRESSURE MEDICATION, FAMILY WOULD LIKE TO WAIT AT THIS TIME AND HAVE BLOOD PRESSURE REASSESSED AGAIN AT A LATER TIME. PATIENT DENIES PAIN AND DOESN'T SHOW SIGNS OF TENSING OR GRIMACING, EDUCATED FAMILY TO NOTIFY NURSING STAFF IF THEY FEEL PATIENT BECOMES UNCOMFORTABLE. PATIENT DENIES CHEST PAIN OR SOB. MOIST, COURSE LUNG SOUNDS ASSESSED, ENCOURAGED PATIENT TO COUGH AND DEEP BREATHE. IV FLUIDS INFUSING PER MAR ORDER. CATH CARE PERFORMED AND CREAM APPLIED TO REDDENED AREA IN PERIAREA. REPOSITIONED PATIENT IN BED. FAMILY AT BEDSIDE WITH FOOD TRAY AVALIABLE. TELE MONITOR [address] HEEL PROTECTORS ON. NO MORE NEEDS AT THIS TIME.
--- NOTE | 2018-05-21 20:49 | NUR ---
ROUNDED CHARGE. PATIENT IS RESTING IN BED. KOURTNEY SORIA IN ROOM AND VISUAL ARTIST AUGUST. PATIENT DENIES ANY PAIN. LAURENT MORGAN DENIES ANY COMMENTS, QUESTIONS OR CONCERNS. NO NEEDS NOTED CALL LIGHT IN REACH.
--- NOTE | 2018-05-21 21:00 | NUR ---
ROUNDED ON PATIENT TO REASSESS BLOOD PRESSURE.
--- NOTE | 2018-05-21 21:18 | NUR ---
DID BLOOD PRESSURE 160/81(101) INFORMED RN KOURTNEY
--- NOTE | 2018-05-21 21:37 | NUR ---
REASSESSED BLOOD PRESSURE WITH CHARGE NURSE [place] IN ROOM. CHARGE NURSE RUBÉN PROVIDED EDUCATION TO FAMILY ABOUT PRN BLOOD PRESSURE MEDICATION THAT IS AVALIABLE FOR CONTINUED ELEVATED BLOOD PRESSURE, PATIENT FAMILY DENIED WANTING PRN BLOOD PRESSURE MEDICATION AT THIS TIME, FAMILY WOULD LIKE NURSING STAFF TO RETURN LATER TO REASSESS BLOOD PRESSURE AFTER PATIENT HAS RESTED FOR A LITTLE BIT. FRESH WATER BROUGHT TO PATIENT FAMILY. NO MORE NEEDS AT THIS TIME.
--- NOTE | 2018-05-21 22:12 | NUR ---
WHEN I WENT INTO THE PT'S ROOM TO EMPTY HER DALY, PT'S FAMILY REQUESTED I DO A BLOOD PRESSURE AND TEMP AGAIN. I INFORMED HER RN KOURTNEY OF RESULTS 188/68 (99) AND TEMP OF 99.3 FAMILY NEEDS NOTHING MORE AT THIS TIME. I&OS DONE AND CHARTED.
--- NOTE | 2018-05-21 22:15 | NUR ---
THIS RN WAS NOTIFIED BY AUGUST, ORTHOTIC/PROSTHETIC PRACTITIONER OF PATIENT'S ELEVATED BLOOD PRESSURE AND FAMILY'S REQUEST FOR PATIENT TO RECIEVE PRN BLOOD PRESSURE MEDICATION. THIS RN WAS ALSO NOTIFED OF PATIENT'S TEMPERATURE OF 99.3F.
--- NOTE | 2018-05-21 22:28 | NUR ---
PRN BLOOD PRESSURE MEDICATION ADMINISTRED BY RUBÉN SORIA. PRN SUPPOSITORY TYLENOL ADMINISTRED FOR REPORTED HEADACHE. SCHEDULED ABX ADMINISTERED PER JUL ORDER. IV FLUIDS BAG REPLACED AND INFUSING PER JUL ORDER. ALLEVYN ON COCCYX ASSESSED TO BE C/D/I. BUTTOCKS CLEANED. REPOSITONED IN BED. WARM BLANKET BROUGHT TO PATIENT. CALL LIGHT WITHIN REACH. FAMILY AND PATIENT DENIES ANY NEEDS AT THIS TIME.
--- NOTE | 2018-05-21 22:43 | NUR ---
HELPED ESTELLA OCONNELL REPOSITION PT IN BED.
--- NOTE | 2018-05-21 23:32 | NUR ---
ROUNDED ON PATIENT TO REASSESS PATIENT'S BLOOD PRESSURE AFTER PATIENT RECIEVED PRN BLOOD PRESSURE MEDICATION AT 2228, UPDATED CHARGE NURSE RUBÉN OF PATIENT'S ELEVATED BLOOD PRESSURE OF 186/73 (97). ENCOURAGED PATIENT TO COUGH AND DEEP BREATH, O2 SATS: 90%. PATIENT REPORTS THAT SHE STILL HAS A HEADACHE, BUT IT IS "GETTING BETTER". PATIENT RESTING IN BED, NO SIGN OF TENSING OR GRIMACING PRESENT. THERAPEUTIC COMMUNICATION AND COMFORT PROVIDED WHILE BLOOD PRESSURE IS BEING ASSESSED. FAMILY AND PATIENT DENY HAVING ANY NEEDS AT THIS TIME. CALL LIGHT WITHIN REACH.
--- NOTE | 2018-05-22 00:35 | NUR ---
ROUNDED ON PATIENT RESTING IN BED WITH EYES OPEN, RESPIRATORY RATE IS EVEN AND UNLABORED, NO SIGNS OF DISCOMFORT. PATIENT DENIES HAVING PAIN. PATIENT REPOSTIONED IN BED WITH ASSISTANCE FROM YURIDIA BLAIR AND THIS RN, THERAPEUTIC COMMUNICATION PROVIDED WHILE REPOSITIONING PATIENT. BATTERY IN TELE REPLACED. CALL LIGHT WITHIN REACH. PATIENT DENIES ANY NEEDS AT THIS TIME. FAMILY RESTING WITH EYES CLOSED AT BEDSIDE.
--- NOTE | 2018-05-22 00:38 | NUR ---
WITH THE HELP OF ESTELLA OCONNELL WE REPOSITIONED PT IN BED. SHE SAID SHE WAS COMFORTABLE AND DIDNT NEED ANYTHING . DAUGHTERS ARE RESTING IN THE ROOM.
--- NOTE | 2018-05-22 01:35 | NUR ---
ROUNDED ON PATIENT RESTING IN BED WITH EYES OPEN, RESPIRATORY RATE IS EVEN AND UNLABORED. NO SIGNS OF DISCOMFORT. FAMILY RESTING WITH EYES CLOSED AT BEDSIDE. PATIENT DENIES HAVING PAIN. IV FLUIDS INFUSING PER MAR ORDER. PATIENT SPEECH IS CONFUSED, STATING, "THE 6TH BABY DIDN'T MAKE IT", THERAPEUTIC COMMUNICATION PROVIDED. NO MORE NEEDS AT THIS TIME. CALL LIGHT WITHIN REACH.
--- NOTE | 2018-05-22 02:33 | NUR ---
PLACED CALL TO MD ABOUT ELEVATED BP. NO NEW ORDERS AT THIS TIME.
--- NOTE | 2018-05-22 02:55 | NUR ---
ASSESSMENT COMPLETE. BLOOD PRESSURE REASSESSED PER FAMILY REQUEST, FAMILY DECLINED WANTING PRN BLOOD PRESSURE MEDICATION AT THIS TIME. PATIENT REPORTS PAIN IN LEFT HIP AND NECK, REPOSITIONED PATIENT AND PROVIDED WARM BLANKETS, PATIENT EXPRESSED THAT PAIN WAS "DOING BETTER" AFTER INTERVENTIONS. VISIBLE GRIMACING, TENSING, AND IRRITABLE WHILE REPOSITIONING PATIENT IN BED. PATIENT CONSOLABLE WITH THERAPEUTIC COMMUNICATION AND FAMILY PRESENCE. THIS RN CLEANED PATIENT'S FACE WITH WARM WASH CLOTH, CHAP STICK APPLIED, AND LEMON SWABS PROVIDED. PATIENT TOLERATED LEMON SWABS BETTER THAN GREEN SWABS, PATIENT STATED THAT GREEN SWABS ARE "ROUGH". PATIENT'S FAMILY REPORTS PATIENT HAS "SORE" ON TOP OF MOUTH, VERY SMALL SORE NOTED ON ROOF OF MOUTH UPON INSPECTION. PATIENT DENIES SOB, DIFFICULTY BREATHING OR CHEST PAIN. IV FLUIDS INFUSING PER MAR ORDER. HEEL PROTECTORS IN PLACE. PATIENT DENIES HAVING DEVIATIONS FROM PATIENT'S CMS BASELINE. COURSE AND MOIST LUNG SOUNDS NOTED IN UPPER LOBES OF LUNGS, ENCOURAGED PATIENT TO COUGH AND DEEP BREATHE. CALL LIGHT WITHIN REACH. PATIENT AND FAMILY DENY HAVING ANY MORE NEEDS AT THIS TIME.
--- NOTE | 2018-05-22 03:44 | NUR ---
ROUNDED ON PATIENT AFTER FAMILY REPORTS THAT PATIENT'S "BACK IS HURTING HER". REPOSITIONED PATIENT TO RIGHT SIDE PER FAMILY REQUEST. PROVIDED EDUCATION TO FAMILY ON NEXT TIME PRN PAIN MEDICATION IS DUE. PATIENT REPORTS CONTINUED DISCOMFORT WHEN FAMILY ASKED PATIENTS COMFORT LEVEL. PATIENT'S FAMILY STATED THEY WOULD LIKE TO TRY THIS POSITION TO SEE IF PATIENT "MIGHT BE ABLE TO RELAX AND SLEEP". CALL LIGHT WITHIN REACH. NO MORE NEEDS FROM PATIENT AND FAMILY AT THIS TIME.
--- NOTE | 2018-05-22 04:20 | NUR ---
ROUNDED ON PATIENT RESTING ON RIGHT SIDE, RESPIRATORY RATE IS EVEN AND UNLABORED, HR: 82. ATTEMPTED TO PROVIDE PRN PAIN MEDICATION PER FAMILY REQUEST, PATIENT RESTING, WILL ALLOW PATIENT TO REST AT THIS TIME. NO SIGNS OF TENSING OR GRIMACING OR BEING UNCOMFORTABLE. CALL LIGHT WITHIN REACH.
--- NOTE | 2018-05-22 05:02 | NUR ---
ROOM AIR. ENCOURAGED PATIENT TO COUGH AND DEEP BREATH. TELE MONITOR #2. DAL[address]HETER. ST. ACCU CHECK WITH SS. FENTANYL PATCH ON LEFT SIDE OF CHEST. PRN PAIN MEDICATION X1. PRN BLOOD PRESSURE MEDICATION X1. VITALS Q SHIFT OR PRN FAMILY WOULD LIKE. ST. IV ABX Q 8HR. IV FLUIDS INFUSING PER ORDER. BEDBOUND, TURN Q2HR. FAMILY AT BEDSIDE THROUGHOUT SHIFT.
--- NOTE | 2018-05-22 05:25 | NUR ---
ROUNDED ON PATIENT TO REPLACE TELE MONITOR BATTERY. PATIENT RESTING WITH EYES CLOSED, RESPIRATORY RATE IS EVEN AND UNLABORED, HR: 75. FAMILY AT BEDSIDE. CALL LIGHT WITHIN REACH.
--- NOTE | 2018-05-22 06:06 | NUR ---
ROUNDED ON PATIENT FOR SCHEDULED MEDICATION ADMINISTRATION PER ORDER. DALY CATHETER EMPTIED. INTAKE AND OUTPUT ASSESSED AND RECORDED. NO VITALS ASSESSED PER NURSE NOTIFY. RESPIRATORY RATE IS EVEN AND UNLABORED, NO SIGN OF DISCOMFORT, HR: 80. THERAPEUTIC MUSIC CONTINUING TO PLAY ON TV. NO REPOSITIONING PERFORMED PER NURSING JUDGEMENT AND DISCUSSED WITH CHARGE NURSE RUBÉN TO ALLOW PATIENT TO REST PER PATIENT'S FAMILY REPORTING THAT PATIENT HAS BEEN UNABLE TO SLEEP FOR DAYS. DAUGHTERS IN ROOM RESTING, AGREED TO ALLOW PATIENT TO SLEEP. CALL LIGHT WITHIN REACH. FAMILY DENIES ANYMORE NEEDS AT THIS TIME.
--- NOTE | 2018-05-22 06:59 | NUR ---
ROUNDED ON PATIENT. PATIENT COMFORTABLE IN CURRENT POSITIONED WHEN ASKED BY FAMILY MEMBER. FAMILY REQUESTED TO LET PATIENT REST IF PATIENT IS COMFORTABLE IN CURRENT POSITION. PATIENT DENIES PAIN. RESPIRATORY RATE IS EVEN AND UNLABORED, HR: 90. CALLED DIETARY TO REPLACE COFFEE IN ROOM FOR FAMILY. CALL LIGHT WITHIN REACH. NO MORE NEEDS AT THIS TIME.
--- NOTE | 2018-05-22 08:05 | NUR ---
SPOKE WITH PT DAUGHTERS SUAD AND HOMERO ABOUT WHAT TO EXPECT WITH [facility]. PRINTED OUT WRITTEN EDUCATION FOR THEM WELL. ALL QUESTIONS ANSWERED AT THIS TIME. PT RESTING IN BED ON RIGHT SIDE. MORE ALERT THIS AM. RESPONDS TO VERBAL STIMULI, ORIENTED TO SELF AND PLACE. DENIES NEEDS OR CONCERNS AT THIS TIME. CALL LIGHT WITHIN REACH.
--- NOTE | 2018-05-22 09:12 | NUR ---
PT MEDICATED WITH PRN IV ATIVAN. DAUGHTERS AT BEDSIDE. CALL LIGHT WITHIN REACH.
--- NOTE | 2018-05-22 09:13 | NUR ---
OFFERED PASTORAL CARE SERVICES. FAMILY REFUSED AT THIS TIME.
--- NOTE | 2018-05-22 11:12 | NUR ---
PT REPOSITIONED. FAMILY AT BEDSIDE. PT REPORTS "I'M OK." DENIES NEEDS OR CONCERNS. CALL LIGHT WITHIN REACH.
--- NOTE | 2018-05-22 11:41 | NUR ---
FAXED CHART TONA, INCLUDING FACE SHEET, H AND P, PROG NOTES, FAXED TO [facility] AFTER SPEAKING WITH DAUGHTER SUAD. I ALSO TALKED TO FEDE AT [facility] AND SHE SAID THEY WOULD BE GLAD TO HELP BUT THEY NEEDED THE CLINICALS TO SEE IF PT WAS ELIGIBLE. EARLIER I ATTEMPTED TO CALL [employer] PT SON, GOT NO ANSWER SO MESSAGE WAS LEFT. FAMILY STATES THEY ARE VERY INTERESTED IN HOSPICE AND SITE THAT THEY DO NOT AT THIS TIME NEED DME EQUIPMENT THEY ARE MORE CONCERNED ABOUT KEEPING HER COMFORTABLE.
--- NOTE | 2018-05-22 11:52 | NUR ---
PT APPEARS TO BE RESTING COMFORTABLY, WITH FAMILY BY PT'S SIDE. DECISION HAS BEEN MADE TO TAKE PT HOME TODAY ON HOSPICE. DISCUSSED THIS DECISION WITH FAMILY, EDUCATED ON [employer] IS NOW [employer], THEY EXPRESSED UNDERSTANDING. IT DOES APPEAR PT ACCORDING TO FAMILY HAS MADE FINAL ARRANGEMENTS WITH IN [facility]. EXTENDED A BLESSING, FAMILY EXPRESS APPRECIATION FOR ALL [facility] HAS DONE FOR PT AND FAMILY. WILL FOLLOW NEEDED
--- NOTE | 2018-05-22 12:20 | NUR ---
CARE CONFERENCE MET WITH PT FAMILY INCLUDING SON SILVIA, DAUGHTERS SUAD AND HOMERO, AND A GRANDDAUGHTER AND MYSELF CASE MANAGEMENT. WE DISCUSSED HOSPICE, WHAT IT IS AND WHAT IT CAN DO FOR THEIR MOTHER AND THEM. TOLD THEM THAT [facility] WILL BE COMING TO SEE HER TOMORROW MORNING AND GET HER ADMITTED TO HOSPICE. THEY DENIED THE NEED FOR DURABLE MEDICAL EQUIPMENT AT THIS TIME. THEY HAVE NO FURTHER QUESTIONS AT THIS TIME. GAVE THEM MY BUSINESS CARDS AND TOLD THEM IF THEY HAVE QUESTIONS OR CONCERNS I WOULD BE GLAD TO ANSWER QUESTIONS.
--- NOTE | 2018-05-22 13:04 | NUR ---
VERBAL ORDER FROM MD TO RETIME FENTANYL PATCH FOR TODAY PRIOR TO DISCHARGE, REPEATED BACK. PHARMACY NOTIFIED, TO RETIME MEDICATION.
[2018-05-22] MEDS ORDERED: FENTANYL1 EAC4 TD (13:16)
--- NOTE | 2018-05-22 13:44 | NUR ---
PATIENT GIVEN BED BATH BY THIS CORRESPONDENCE ANALYST AND ESTELLA BECERRA. CALL LIGHT IN REACH. NO FURTHER NEEDS AT THIS TIME.
--- NOTE | 2018-05-22 13:45 | NUR ---
PT RECIEVED BED BATH FROM MARCELLE BLAIR AND KATHE JEFFRIES RN. PT REPOSITIONED. PT CURRENTLY RESTING COMFORTABLY IN BED. DAUGHTER SUAD AT BEDSIDE.
--- NOTE | 2018-05-22 14:30 | NUR ---
FENTANYL PATCH REPLACED ORDRED. PT CURRENTLY RESTING IN BED, APPEARS COMFORTABLE. PT AND FAMILY DENY NEEDS OR CONCERNS AT THIS TIME. CALL LIGHT WITHIN REACH.
--- NOTE | 2018-05-22 15:40 | NUR ---
EMS ARRIVED FOR NON EMERGENT TRANSPORT. PREMEDICATED WITH IV ATIVAN ORDERED. BOTH IV'S DC'D AT THIS TIME. TELE REMOVED. PT TRANSFERED TO [facility] WITH [facility], PAINFUL WITH MOVEMENT BUT DAMASO WELL. ALL BELONGINGS SENT HOME WITH DAUGHTER SUAD.
--- NOTE | 2018-05-22 18:05 | NUR ---
2MG OF IV ATIVAN PULLED FROM PYXIS. ONLY 0.5MG ADMINISTERED AT 1540. REMAINING 1.5MG WASTED WITH URIEL Sepulveda RN WITNESS.
== END 2018-05-22 15:50 | disposition home or self-care (01) | DRG 871 ==
LOC: ED 14:29 → CCU 18:57 → MS 05-20 19:20
PROVIDERS: ADMIT Internal Medicine
DX: A41.51 Sepsis due to Escherichia coli [E. coli] (principal); E43 Unspecified severe protein-calorie malnutrition; G93.41 Metabolic encephalopathy; N20.1 Calculus of ureter; E87.1 Hypo-osmolality and hyponatremia; N13.6 Pyonephrosis; G81.90 Hemiplegia, unspecified affecting unspecified side; S06.9X0S Unspecified intracranial injury without loss of consciousness, sequela; G35 Multiple sclerosis; E86.0 Dehydration; E11.65 Type 2 diabetes mellitus with hyperglycemia; Z79.4 Long term (current) use of insulin; R32 Unspecified urinary incontinence; R33.9 Retention of urine, unspecified; E83.42 Hypomagnesemia; Z86.73 Personal history of transient ischemic attack (TIA), and cerebral infarction without residual deficits
CPT/HCPCS: 36415; 51701; 51702; 71045; 74177; 80048; 80076; 81001; 82570; 82607; 82746; 83540; 83605; 83735; 83930; 83935; 84133; 84300; 84443; 84466; 84484; 84550; 85025; 87040; 87077; 87088; 87184; 87186; 92610; 93005; 93010; 96374; 99284-25; J0360; J0690; J0692; J0696; J1200; J1650; J1815; J2060; J3475; J3480; J7030; J7040; J7042; J7060; Q9967